=== PATIENT | female | born 1935 | race Two or more races ===

== ENCOUNTER 2017-03-16 13:00 | Outpatient (CLI) | payer MEDICARE ==
--- NOTE | 2017-03-16 14:32 | Diagnostic Imaging Report ---
Indication: Chest pain Technique: Continuous helical transaxial imaging of the chest was obtained from the thoracic inlet to the upper abdomen during rapid intravenous contrast administration. Arterial phase of enhancement obtained. Coronal 2-D reformats were also obtained and maximum intensity projection images in multiple planes. Study obtained in a Siemens sensation [address] Automatic Exposure Control was utilized. Total Dose length Product (DLP): 576.[address] Dose Index Volume (CTDIvol): 14.74 mGy Comparison: None Findings: The pulmonary artery is well opacified and shows no filling defects. There is no adenopathy, pleural or pericardial effusions are identified. There is no aortic dissection or aneurysm identified within the chest. Mild basilar atelectasis demonstrated. There is a pectus excavatum. Cholecystectomy clips noted. Impression: No acute disease. No pulmonary embolus. Mild basal atelectasis Pectus excavatum Status post cholecystectomy The CT scanner at [facility] is accredited by the [employer] and the scans are performed using dose optimization techniques as appropriate to a performed exam including Automatic Exposure control.
== END 2017-03-16 15:00 | disposition home or self-care (01) ==
LOC: CAT 13:00
DX: J90 Pleural effusion, not elsewhere classified (principal); Z90.49 Acquired absence of other specified parts of digestive tract
CPT/HCPCS: 71275; Q9967